=== PATIENT | male | born 1960 | race Caucasian/White ===

== ENCOUNTER → 2017-11-06 | Outpatient (CLI) | payer OTHER, MEDICARE ==
[2017-08-28 14:10] VITALS: BMI 30.3
[~2017-11-06] MED LIST: ACET-1748 PO; ALBU8.5H12 IH; ALE10 PO; ASPI-715 PO; ASPI-816 PO; ASPI81TA94 PO; AZIT-17 PO; BLOO1STR16 MC; BLOO1STR38 MC; BUM2 PO; BUME2TAB PO; CALC-845; CELE-1 PO; CELE100C79 PO; CELEBREX; CEP500 PO; CIPDEXPT RIGHT EAR; CITA-137 PO; CITA-139 PO; CLIN300C99 PO; CLON-303 PO; COUMADIN; DEXT-116 PO; DIURETIC; DULO30CA35 PO; DULO60CA56 PO; ENOX40DI9 SQ; ESC10 PO; ESCI20TA38 PO; FLU IM; FLU45SYR17 IM; FLU60SYR30 IM ONLY; GABA-503 PO; GABA-549 PO; HUMALOG SC; HYDR-4308 PO; HYDR-4309 PO; HYDR10 PO; INSU100C12 SQ; INSU100V24 SQ; INSU100V28 SQ; LANI SUBQ; LATA2.5D5 OP; LEVO750T44 PO; LEVO75TA68 PO; LEVO75TA73 PO; LEXAPRO; LOR5/325 PO; METF-410 PO; METO-231 PO; METO100T20 PO; METO2.5T15 PO; METOPROLOL; METXL50 PO; METXR500 PO; NARCO; OSC600 PO; OXYC-375 PO; OXYC-823 PO; OXYC10TA67 PO; OXYC5TAB38 PO; PER PO; PERCOSET; POTA25TA28 PO; POTASSIUM; PRA0.25 PO; PRAM0.5T23 PO; PRED20TA6 PO; PREG100C44 PO; PREG150C33 PO; PREG75CA60 PO; SPI25 PO; SPIR25TA78 PO; SPIRONOLACTONE; TRA50 PO; VITAMINS; WAR5 PO; WAR75 PO; WARF-1 PO; WARF-18 PO; WARF7.5T32 PO; [UNRECOGNIZED DRUG - CODE] PO; insulin pump SQ
== END ==
LOC: LAB 13:07
PROVIDERS: ATTEND Pharmacist Pharmacotherapy
DX: D69.6 Thrombocytopenia, unspecified (principal); Z86.39 Personal history of other endocrine, nutritional and metabolic disease
CPT/HCPCS: 36415; 85018; 99195

== ENCOUNTER → 2018-01-20 | Outpatient (CLI) | payer OTHER, MEDICARE ==
[2017-08-28 14:10] VITALS: BMI 30.3
[~2018-01-20] MED LIST changes: -ASPI-816 PO; +ASPI-870 PO; -WARF-18 PO; +WARF5TAB23 PO; +WARF7.5T13 PO; -WARF7.5T32 PO
== END ==
LOC: LAB 09:29
PROVIDERS: ATTEND Internal Medicine Nephrology
DX: E83.110 Hereditary hemochromatosis (principal); N18.3 Chronic kidney disease, stage 3 (moderate); E08.22 Diabetes mellitus due to underlying condition with diabetic chronic kidney disease; Z79.4 Long term (current) use of insulin
CPT/HCPCS: 36415; 82040; 82310; 82374; 82435; 82550; 82565; 82575; 82947; 83883; 83970; 84100; 84132; 84156; 84165; 84295; 84520; 86335

== ENCOUNTER → 2018-01-21 | Outpatient (CLI) | payer OTHER, MEDICARE ==
[2017-08-28 14:10] VITALS: BMI 30.3
--- NOTE | 2018-01-21 09:05 | RADIOLOGY IMAGING REPORT ---
FACILITY: [facility] [place] PATIENT NAME: Mata Beard : 1960 MR: [id number] V: [id number] EXAM DATE: ORDERING PHYSICIAN: FRANCIS ALSTON TECHNOLOGIST: Location: [facility] [place] Patient: Mata Beard : 1960 Visit/Account:[id number] Date of Sevice: 01/21/2018 KIDNEYS HISTORY: Stage III kidney disease. COMPARISON: None. FINDINGS: Right kidney- 9.6 x 4.8 x 5.6 cm, diffuse increased renal parenchymal echogenicity with normal thickn ess.. No concerning masses. No calculi. No hydronephrosis. Normal vascularity. Left kidney- 12.0 x 4.7 x 4.5 cm, diffuse increased renal parenchymal echogenicity but normal thickne ss.. No concerning masses. No calculi. No hydronephrosis. Normal vascularity. Bladder: Unremarkable. Bilateral ureteral jets visualized. Prevoid volume 926 mL. Postvoid volume 10 mL. Abdominal aorta and IVC: Patent by Doppler ultrasound. Other findings: None significant IMPRESSION: 1. Both kidneys are normal size with diffuse increased parenchymal echogenicity which can be seen wi th chronic medical renal disease. No hydronephrosis. 2. Normal urinary bladder. Report Dictated By: Raghu Adams MD at 01/21/2018 8:58 AM Report E-Signed By: Raghu Adams MD at 01/21/2018 9:00 AM WSN:[id number]
== END ==
LOC: US 01:11
PROVIDERS: ATTEND Internal Medicine Nephrology
DX: N18.3 Chronic kidney disease, stage 3 (moderate) (principal); E83.119 Hemochromatosis, unspecified; I43 Cardiomyopathy in diseases classified elsewhere; E83.110 Hereditary hemochromatosis
CPT/HCPCS: 76705

== ENCOUNTER → 2018-02-27 | Outpatient (CLI) | payer OTHER, MEDICARE ==
[2017-08-28 14:10] VITALS: BMI 30.3
[~2018-02-27] MED LIST changes: -CITA-139 PO; +CITA-145 PO; +ERGO500037 PO; +LISI-362 PO; -METF-410 PO; +METF-411 PO; -OXYC-375 PO; +OXYC1TAB78 PO
[2018-02-27 09:27] LABS: PLATELET COUNT, AUTOMATED 142 K/uL (150-450)
== END ==
LOC: LAB 09:07
PROVIDERS: ATTEND Internal Medicine
DX: I48.91 Unspecified atrial fibrillation (principal); N18.9 Chronic kidney disease, unspecified; E11.9 Type 2 diabetes mellitus without complications; Z86.79 Personal history of other diseases of the circulatory system; E78.00 Pure hypercholesterolemia, unspecified; E83.119 Hemochromatosis, unspecified
CPT/HCPCS: 36415; 82040; 82247; 82310; 82374; 82435; 82565; 82728; 82947; 83036; 83540; 83550; 84075; 84132; 84155; 84295; 84450; 84460; 84520; 85025

== ENCOUNTER 2018-03-24 17:24 | Emergency (ER) | payer OTHER, MEDICARE ==
[2017-08-28 14:10] VITALS: Wt 94.3 kg
[~2018-03-24 17:24] MED LIST changes: +LISI5TAB25 PO
[2018-03-24] MEDS ORDERED: ASPIRIN 325 MG TAB PO STA (17:34)
--- NOTE | 2018-03-24 17:41 | ER Report ---
History and Physical Time Seen By MD: 17:40 Hx. of Stated Complaint: Right-sided weakness since Saturday HPI/ROS 57-year-old male sent here from Agata Bello's office patient has a history of sudden onset right-sided weakness since Saturday has a history of previous TIA aND HEMOCHROMATOSIS Allergies: Coded Allergies: adhesive (Verified Allergy, Mild, 07/03/16) Home Meds Active Scripts Pramipexole Di-Hcl (PRAMIPEXOLE DIHYDROCHLORIDE) 0.5 Mg Tablet, 1 TAB PO TID, # 180 TAB 1 Refill Prov:GREER CROWLEY MD 03/24/18 Levothyroxine Sodium (LEVOTHYROXINE SODIUM) 75 Mcg Tablet, 1 TAB PO QAM, #30 TAB Prov:GREER CROWLEY MD 03/18/18 Duloxetine Hcl (CYMBALTA) 60 Mg Capsule.dr, 60 MG PO QDAY, #90 CAP 1 Refill Prov:GREER CROWLEY MD 03/10/18 Gabapentin (GABAPENTIN) 600 Mg Tablet, 600 MG PO BID Y for pain, #60 TAB 6 Refills Prov:GREER CROWLEY MD 02/27/18 Oxycodone Hcl 10 Mg Tab (OXYCODONE HCL 10 MG TAB) 10 Mg Tablet, 10 MG PO QID Y for pain, #120 TAB refill on or after 04/29/2018 Prov:GREER CROWLEY MD 02/27/18 Metoprolol Succinate (METOPROLOL SUCCINATE) 100 Mg Tab.er.24h, 1 TAB PO QDAY, # 90 TAB 4 Refills Prov:GREER CROWLEY MD 01/16/18 Clonazepam (CLONAZEPAM) 1 Mg Tablet, 1 TAB PO HS Y for restless leg, #30 TAB 5 Refills Prov:GREER CROWLEY MD 12/30/17 Insulin Lispro 100 Un/Ml Vial (HUMALOG 100 U/ML VIAL) 100 Unit/1 Ml Vial, 100 UNIT SQ DIRECTED, #10 VIAL 6 Refills Use up to 100 units/day with pump Prov:GREER CROWLEY MD 12/30/17 Pregabalin (LYRICA) 150 Mg Capsule, 150 MG PO BID, #60 CAPSULE 5 Refills Prov:GREER CROWLEY MD 11/13/17 Dextrose (GLUCOSE) 4 Gm Tab.chew, 8 GM PO QID, #4 TAB.CHEW 11 Refills Prov:KARIE CAROLINA PHARMAdryan 08/23/17 Bumetanide (BUMETANIDE) 2 Mg Tab, 1 TAB PO QDAY, #90 TAB 4 Refills Prov:GREER CROWLEY MD 07/29/17 Warfarin Sodium (COUMADIN) 5 Mg Tablet, 5 MG PO QDAY, #93 TAB 5 Refills Prov:KARIE CAROLINA PHARMD 12/10/16 Reported Medications Lisinopril (LISINOPRIL) 5 Mg Tablet, 5 MG PO QDAY, TAB 03/21/18 Ergocalciferol (Vitamin D2) (VITAMIN D2) 50,000 Unit Capsule, 50783 UNIT PO Q30D , CAPSULE 02/27/18 [insulin pump] No Conflict Check, SQ 07/07/16 Blood Sugar Diagnostic (CONTOUR NEXT) 1 Each Strip, 1 EACH MC QID for 30 Days, STRIP 02/22/16 Calcium Carbonate/Vitamin D3 (Oscal-D) 1 Ea Tab, 1 EA PO QDAY 06/06/12 Discontinued Reported Medications Lisinopril (LISINOPRIL) 10 Mg Tablet, 10 MG PO QDAY, TAB 02/27/18 Past Medical/Surgical History HTN, TIA, HEMACHROMATOSIS Reviewed Nurses Notes: Yes Old Medical Records Reviewed: Yes Hx Smoking: No Smoking Status: Never Smoker Exposure to Second Hand Smoke?: No Hx Substance Use Disorder: No Hx Alcohol Use: No Constitutional Vital Sign - Last 24 Hours 03/24/18 03/24/18 03/24/18 03/24/18 17:34 17:37 17:39 17:45 Temp 98.3 Pulse 67 68 Resp 17 B/P (MAP) 135/82 (99) 135/82 Pulse Ox 85 94 O2 Delivery Room Air O2 Flow Rate 3.0 03/24/18 03/24/18 03/24/18 03/24/18 17:54 18:00 18:09 18:14 Pulse 67 62 ??? B/P (MAP) 117/83 (94) Pulse Ox 94 94 03/24/18 03/24/18 03/24/18 03/24/18 18:29 18:30 18:44 18:59 Pulse ??? 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 HEENT has normocephalic/atraumatic tympanic membranes are non-reddened throat is non- reddened neck is supple no JVD heart rate is regular no murmurs rubs and gallops lungs clear to auscultation abdomen is soft bowel sounds 4 quadrants moves all extremities no focal neurologic deficit cranial nerves and grossly intact 2-12 Medical Decision Making Data Points Result Diagram: 03/24/18 1745 03/24/18 1745 Laboratory Hematology Test 03/24/18 17:45 Red Blood Count 5.70 M/uL (4.00-5.60) Mean Corpuscular Volume 95.9 fL (80.0-96.0) Mean Corpuscular Hemoglobin 32.6 pg (26.0-33.0) Mean Corpuscular Hemoglobin Concent 34.0 g/dL (32.0-36.0) Red Cell Distribution Width 18.1 % (11.5-14.5) Mean Platelet Volume 10.0 fL (7.2-11.1) Neutrophils (%) (Auto) 71.6 % (39.4-72.5) Lymphocytes (%) (Auto) 15.5 % (17.6-49.6) Monocytes (%) (Auto) 6.7 % (4.1-12.4) Eosinophils (%) (Auto) 4.9 % (0.4-6.7) Basophils (%) (Auto) 1.3 % (0.3-1.4) Nucleated RBC Relative Count (auto) 0.2 /100WBC Neutrophils # (Auto) 5.2 K/uL (2.0-7.4) Lymphocytes # (Auto) 1.1 K/uL (1.3-3.6) Monocytes # (Auto) 0.5 K/uL (0.3-1.0) Eosinophils # (Auto) 0.4 K/uL (0.0-0.5) Basophils # (Auto) 0.1 K/uL (0.0-0.1) Nucleated RBC Absolute Count (auto) 0.02 K/uL Peripheral Blood Smear Y/N Prothrombin Time 25.8 seconds (12.0-14.4) Prothromb Time International Ratio 2.28 Activated Partial Thromboplast Time 38 seconds (23-35) Sodium Level 142 mmol/L (137-145) Potassium Level 4.2 mmol/L (3.5-5.0) Chloride Level 102 mmol/L (98-107) Carbon Dioxide Level 30 mmol/L (22-30) Blood Urea Nitrogen 38 mg/dl (9-21) Creatinine 2.00 mg/dl (0.66-1.25) Glomerular Filtration Rate Calc 34.5 Random Glucose 89 mg/dl (75-110) Calcium Level 9.0 mg/dl (8.4-10.2) Total Bilirubin 1.7 mg/dl (0.2-1.3) Aspartate Amino Transf (AST/SGOT) 52 U/L (0-35) Alanine Aminotransferase (ALT/SGPT) 59 U/L (0-56) Alkaline Phosphatase 218 U/L (0-126) Troponin I < 0.012 ng/ml Total Protein 7.7 g/dl (6.3-8.2) Albumin 3.9 g/dl (3.5-5.0) Chemistry Test 03/24/18 17:45 White Blood Count 7.3 k/uL (4.5-11.0) Red Blood Count 5.70 M/uL (4.00-5.60) Hemoglobin 18.6 g/dL (14.0-18.0) Hematocrit 54.6 % (42.0-52.0) Mean Corpuscular Volume 95.9 fL (80.0-96.0) Mean Corpuscular Hemoglobin 32.6 pg (26.0-33.0) Mean Corpuscular Hemoglobin Concent 34.0 g/dL (32.0-36.0) Red Cell Distribution Width 18.1 % (11.5-14.5) Platelet Count 146 K/uL (150-450) Mean Platelet Volume 10.0 fL (7.2-11.1) Neutrophils (%) (Auto) 71.6 % (39.4-72.5) Lymphocytes (%) (Auto) 15.5 % (17.6-49.6) Monocytes (%) (Auto) 6.7 % (4.1-12.4) Eosinophils (%) (Auto) 4.9 % (0.4-6.7) Basophils (%) (Auto) 1.3 % (0.3-1.4) Nucleated RBC Relative Count (auto) 0.2 /100WBC Neutrophils # (Auto) 5.2 K/uL (2.0-7.4) Lymphocytes # (Auto) 1.1 K/uL (1.3-3.6) Monocytes # (Auto) 0.5 K/uL (0.3-1.0) Eosinophils # (Auto) 0.4 K/uL (0.0-0.5) Basophils # (Auto) 0.1 K/uL (0.0-0.1) Nucleated RBC Absolute Count (auto) 0.02 K/uL Peripheral Blood Smear Y/N Prothrombin Time 25.8 seconds (12.0-14.4) Prothromb Time International Ratio 2.28 Activated Partial Thromboplast Time 38 seconds (23-35) Glomerular Filtration Rate Calc 34.5 Calcium Level 9.0 mg/dl (8.4-10.2) Total Bilirubin 1.7 mg/dl (0.2-1.3) Aspartate Amino Transf (AST/SGOT) 52 U/L (0-35) Alanine Aminotransferase (ALT/SGPT) 59 U/L (0-56) Alkaline Phosphatase 218 U/L (0-126) Troponin I < 0.012 ng/ml Total Protein 7.7 g/dl (6.3-8.2) Albumin 3.9 g/dl (3.5-5.0) Coagulation Test 03/24/18 17:45 Prothrombin Time 25.8 seconds Prothromb Time International Ratio 2.28 Activated Partial Thromboplast Time 38 seconds ED Course/Re-evaluation ED Course CAT scan was read as negative we'll send him back to his primary care provider for additional imaging as needed Re-evaluation UNCHANGED DURING ER STAY NO NEW LAB OR CT HEAD FINDINGS HOME W Decision to Disposition Date: Mar 24, 2018 Decision to Disposition Time: 19:40 Depart Departure Latest Vital Signs Vital Signs Date Time Temp Pulse Resp B/P (MAP) Pulse Ox O2 Delivery O2 Flow Rate FiO2 6/18/18 19:14 60 97 03/24/18 19:00 129/84 (99) 03/24/18 17:45 3.0 03/24/18 17:37 98.3 17 Room Air Impression: Primary Impression: Weakness of right hand Condition: Improved Disposition: HOME OR SELF-CARE Referrals: GREER CROWLEY MD (PCP) 1 Day Patient Instructions: Weakness (ED) Additional Instructions: Follow-up with your primary care physician next available appointment you may need additional imaging will at your primary care physician organize this, please return to the emergency room for any worsening of symptoms RC VÁZQUEZ Mar 24, 2018 17:41
[2018-03-24 17:52] LABS: PLATELET COUNT, AUTOMATED 146 K/uL (150-450)
--- NOTE | 2018-03-24 17:53 | EKG ---
FACILITY: [facility] PATIENT NAME: Mata CHANEY : [id number] MR: [id number] V: [id number] EXAM DATE: ORDERING PHYSICIAN: RC VÁZQUEZ TECHNOLOGIST: RIGO Villatoro Reason : NEURO Blood Pressure : / mmHG Vent. Rate : 065 BPM Atrial Rate : 065 BPM P-R Int : 158 ms QRS Dur : 094 ms QT Int : 434 ms P-R-T Axes : 036 -01 025 degrees QTc Int : 451 ms Normal sinus rhythm Normal ECG When compared with ECG of 22-JUL-2017 08:18, Sinus rhythm has replaced Electronic atrial pacemaker Confirmed by BEAU HALL ([id number]) on 03/24/2018 8:36:42 PM Referred By: SHERITA Confirmed By:BEAU HALL
[2018-03-24 18:01] LABS: INR 2.28
[2018-03-24 19:00] VITALS: BP 129/84
--- NOTE | 2018-03-24 19:05 | RADIOLOGY IMAGING REPORT ---
FACILITY: [facility] PATIENT NAME: Mata Beard : 1960 MR: [id number] V: [id number] EXAM DATE: ORDERING PHYSICIAN: RC VÁZQUEZ TECHNOLOGIST: Location: [facility] Patient: Mata Beard : 1960 Visit/Account:[id number] Date of Sevice: 03/24/2018 EXAMINATION: CT HEAD WITHOUT CONTRAST COMPARISON: None available HISTORY: Right-sided weakness. PROCEDURE: Noncontrast CT from the vertex through the skull base. One of the following dose optimizat ion techniques was utilized in the performance of this exam: Automated exposure control; adjustment o f the mA and/or kV according to the patient's size; or use of an iterative reconstruction technique. Specific details can be referenced in the facility's radiology CT exam operational policy. FINDINGS: Brain volume: Age-appropriate. Hemorrhage/extra-axial fluid: None. Mass effect/midline shift/edema: None. Ischemia: Mathew-white differentiation is preserved. Ventricles and basal cisterns: Within normal limits. Posterior fossa: Negative. Vessels: Negative. Calvarium, skull base, and scalp: Negative. Visualized sinuses and orbits: Within normal limits. IMPRESSION: Negative age-appropriate noncontrast head CT. Report Dictated By: Wilson Marquez MD at 03/24/2018 6:56 PM Report E-Signed By: Wilson Marquez MD at 03/24/2018 7:02 PM [id number]
== END 2018-03-24 19:33 | disposition home or self-care (01) ==
LOC: ER 17:55
DX: R53.1 Weakness (principal); Z86.73 Personal history of transient ischemic attack (TIA), and cerebral infarction without residual deficits; I10 Essential (primary) hypertension
CPT/HCPCS: 70450; 82040; 82247; 82310; 82374; 82435; 82565; 82947; 84075; 84132; 84155; 84295; 84450; 84460; 84484; 84520; 85025; 85610; 85730; 93005; 99284

== ENCOUNTER → 2018-03-31 | Outpatient (CLI) | payer OTHER, MEDICARE ==
[2017-08-28 14:10] VITALS: BMI 30.3
== END ==
LOC: SPU 07:41
PROVIDERS: ATTEND Internal Medicine
DX: E83.119 Hemochromatosis, unspecified (principal)
CPT/HCPCS: 85014; 99195

== ENCOUNTER → 2018-05-08 | Outpatient (CLI) | payer OTHER, MEDICARE ==
[2017-08-28 14:10] VITALS: BMI 30.3
[~2018-05-08] MED LIST changes: +CLON-304 PO; +SPIR25TA80 PO
[2018-05-08 09:36] LABS: PLATELET COUNT, AUTOMATED 123 K/uL (150-450)
--- NOTE | 2018-05-08 10:58 | RADIOLOGY IMAGING REPORT ---
FACILITY: [facility] PATIENT NAME: Mata Beard : 1960 MR: [id number] V: [id number] EXAM DATE: ORDERING PHYSICIAN: GREER CROWLEY TECHNOLOGIST: Location: [facility] Patient: Mata Beard : 1960 Visit/Account:[id number] Date of Sevice: 05/08/2018 EXAMINATION: Abdominal ultrasound complete HISTORY: Right upper quadrant pain, chronic kidney disease, diabetes type II COMPARISON: Abdomen ultrasound June 29, 2015 FINDINGS: Gallbladder: Gallbladder wall is mildly thickened at 4 mm. There is no demonstration of gallbladder stones or sludge. There is a negative Mills sign by technologist notation Liver: There is a slightly lobular contour to the enlarged liver measuring 18 cm in length. The live r echotexture appears heterogeneous although discrete mass is not demonstrated Common duct: Normal measuring six mm. Pancreas: Partially obscured by bowel gas although no focal masses demonstrated Spleen: Enlarged measuring 15.8 cm in length. Kidneys: Normal in size and echogenicity, the right measures 8.9 cm in length, and the left 10.6 cm. No hydronephrosis. Is a tiny cyst in the left kidney. Resistive indices in the kidneys measures 0 .77 on the right 0.76 on the left Upper abdominal aorta and IVC: Negative. Ascites: None. IMPRESSION: Liver is mildly enlarged with a lobular contour and heterogeneous echotexture consistent with the anand or history of cirrhosis Spinal megaly with the spleen measuring 15.8 cm in length Resistive indices in the kidneys mildly elevated at 0.77 on the right and 0.76 on the left Gallbladder wall is mildly thickened although no evidence of gallbladder stones sludge or positive Mu rphy sign Report Dictated By: Paola Persaud MD at 05/08/2018 10:33 AM Report E-Signed By: Paola Persaud MD at 05/08/2018 10:54 AM WSN:[id number]
== END ==
LOC: LAB 08:47
PROVIDERS: ATTEND Internal Medicine
DX: N18.9 Chronic kidney disease, unspecified (principal); E11.9 Type 2 diabetes mellitus without complications; Z86.79 Personal history of other diseases of the circulatory system; R10.11 Right upper quadrant pain; E83.119 Hemochromatosis, unspecified; K74.60 Unspecified cirrhosis of liver; R19.8 Other specified symptoms and signs involving the digestive system and abdomen
CPT/HCPCS: 36415; 76700; 81001; 82040; 82150; 82247; 82310; 82374; 82435; 82465; 82565; 82728; 82947; 83036; 83540; 83550; 83690; 83718; 84075; 84132; 84155; 84295; 84443; 84450; 84460; 84478; 84520; 85025

== ENCOUNTER 2018-06-09 10:26 | Emergency (ER) | payer OTHER, MEDICARE ==
[2017-08-28 14:10] VITALS: Wt 90.7 kg
--- NOTE | 2018-06-09 10:28 | ER Report ---
History and Physical Time Seen By MD: 10:28 HPI/ROS CHIEF COMPLAINT: Laceration to leg HISTORY OF PRESENT ILLNESS: Patient is a 57-year-old male who presents to the emergency department after striking his right anterior lovelace with a sledgehammer. This was an accidental injury but it did cause the skin split. He presents approximately 30 minutes after the initial injury. He is having continued bleeding from the site. Patient's last tetanus shot was 3 years ago. Patient is anticoagulated with Coumadin for prior stroke/TIA. Last Coumadin level was checked to weeks ago. Allergies: Coded Allergies: adhesive (Verified Allergy, Mild, 06/09/18) Home Meds Active Scripts Pregabalin (LYRICA) 150 Mg Capsule, 150 MG PO BID, #60 CAPSULE 5 Refills Prov:GREER CROWLEY MD 05/22/18 Levothyroxine Sodium (LEVOTHYROXINE SODIUM) 75 Mcg Tablet, 1 TAB PO QAM, #90 TAB Prov:GREER CROWLEY MD 05/05/18 Blood Sugar Diagnostic (CONTOUR NEXT) 1 Each Strip, 1 EACH MC QID for 30 Days, #150 STRIP 5 Refills patient to test blood glucose four times daily Prov:GREER CROWLEY MD 04/15/18 Pramipexole Di-Hcl (PRAMIPEXOLE DIHYDROCHLORIDE) 0.5 Mg Tablet, 1 TAB PO TID, #180 TAB 1 Refill Prov:GREER CROWLEY MD 03/24/18 Duloxetine Hcl (CYMBALTA) 60 Mg Capsule.dr, 60 MG PO QDAY, #90 CAP 1 Refill Prov:GREER CROWLEY MD 03/10/18 Gabapentin (GABAPENTIN) 600 Mg Tablet, 600 MG PO BID PRN for pain, #60 TAB 6 Refills Prov:GREER CROWLEY MD 02/27/18 Oxycodone Hcl 10 Mg Tab (OXYCODONE HCL 10 MG TAB) 10 Mg Tablet, 10 MG PO QID PRN for pain, #120 TAB refill on or after 04/29/2018 Prov:GREER CROWLEY MD 02/27/18 Metoprolol Succinate (METOPROLOL SUCCINATE) 100 Mg Tab.er.24h, 1 TAB PO QDAY, #90 TAB 4 Refills Prov:GREER CROWLEY MD 01/16/18 Clonazepam (CLONAZEPAM) 1 Mg Tablet, 1 TAB PO HS PRN for restless leg, #30 TAB 5 Refills Prov:GREER CROWLEY MD 12/30/17 Insulin Lispro 100 Un/Ml Vial (HUMALOG 100 U/ML VIAL) 100 Unit/1 Ml Vial, 100 UNIT SQ DIRECTED, #10 VIAL 6 Refills Use up to 100 units/day with pump Prov:GREER CROWLEY MD 12/30/17 Dextrose (GLUCOSE) 4 Gm Tab.chew, 8 GM PO QID, #4 TAB.CHEW 11 Refills Prov:KARIE CAROLINA PHARMD 08/23/17 Warfarin Sodium (COUMADIN) 5 Mg Tablet, 5 MG PO QDAY, #93 TAB 5 Refills Prov:KARIE CAROLINA PHARMD 12/10/16 Reported Medications Warfarin Sodium (WARFARIN SODIUM) 2.5 Mg Tablet, 2.5 MG PO 2XW 06/09/18 Bumetanide (BUMETANIDE) 2 Mg Tab, 2 MG PO BID, TAB 06/09/18 Lisinopril (LISINOPRIL) 5 Mg Tablet, 5 MG PO QDAY, TAB 03/21/18 Ergocalciferol (Vitamin D2) (VITAMIN D2) 50,000 Unit Capsule, 32207 UNIT PO Q30D, CAPSULE 02/27/18 [insulin pump] No Conflict Check, SQ 07/07/16 Discontinued Scripts Bumetanide (BUMETANIDE) 2 Mg Tab, 1 TAB PO QDAY, #90 TAB 4 Refills Prov:GREER CROWLEY MD 07/29/17 Past Medical/Surgical History Past medical history for hypertension, TIA, hemachromatosis, hypothyroidism, chronic pain, insulin requiring diabetes. Hx Smoking: No Smoking Status: Never Smoker Exposure to Second Hand Smoke?: No Hx Substance Use Disorder: No Hx Alcohol Use: No Constitutional Vital Sign - Last 24 Hours 06/09/18 06/09/18 06/09/18 06/09/18 10:36 10:36 10:56 11:00 Temp 97.8 Pulse 76 71 Resp 14 B/P (MAP) 101/70 101/70 (80) 79/57 (64) Pulse Ox 91 87 O2 Delivery Room Air Room Air 9/3/18 9/3/18 9/3/18 11:25 11:26 11:30 Pulse 66 B/P (MAP) 81/58 (66) 77/56 (63) Pulse Ox 88 O2 Delivery Room Air Physical Exam General appearance: Alert no distress. Skin: Patient has a 3 cm vertical oriented laceration to the middle 3rd of the right tibial area. There is active bleeding. No foreign body visualized. Medical Decision Making ED Course/Re-evaluation ED Course 06/09/2018 10:47:03 am patient with recent major laceration with active bleeding. Plan will be wound irrigation patient's tetanus status is up-to-date. We'll then perform primary closure to obtain hemostasis. 06/09/2018 11:27:08 am we will have physical therapy come to evaluate the patient for his lower extremity swelling. Procedure Procedure: Laceration repair. Verbal consent was obtained from the patient. The 3 cm laceration on the right anterior lovelace was anesthetized in the usual fashion. The wound was cleansed, draped and explored to its base with a gloved finger. [ ] There were no deep s tructures involved. No tendon injury was identified. The wound was repaired with 7 single interrupted 4-0 nylon sutures. The wound repair was simple. The procedure was performed by myself. Bacitracin dressing was applied postprocedure. Decision to Disposition Date: Jun 09, 2018 Decision to Disposition Time: 11:27 Depart Departure Latest Vital Signs Vital Signs Date Time Temp Pulse Resp B/P (MAP) Pulse Ox O2 Delivery O2 Flow Rate FiO2 06/09/18 11:30 77/56 (63) 06/09/18 11:26 66 88 Room Air 06/09/18 10:36 97.8 14 Impression: Primary Impression: Leg laceration Condition: Improved Disposition: HOME OR SELF-CARE Referrals: GREER CROWLEY MD (PCP) 2 Weeks for suture removal Patient Instructions: Acute Wound Care (DC), Laceration (ED) Additional Instructions: Follow-up with her primary care provider 14 days for suture removal. Return sooner if your symptoms or signs of infection as discussed which include but are not limited to fever, redness streaking from the wound, increasing pain at the wound site or pus from the wound. Problem Qualifiers Primary Impression: Leg laceration Encounter type: initial encounter Laterality: right Qualified Codes: S81.811A - Laceration without foreign body, right lower leg, initial encounter MAXIMILIANO EPSTEIN MD Jun 09, 2018 10:28
[2018-06-09] MEDS ORDERED: WARF2.5T11 PO (10:43)
[2018-06-09] MEDS ORDERED: BUM2 PO (10:43)
[2018-06-09 12:00] VITALS: BP 92/62
== END 2018-06-09 12:25 | disposition home or self-care (01) ==
LOC: ER 10:39
DX: S81.811A Laceration without foreign body, right lower leg, initial encounter (principal); W20.8XXA Other cause of strike by thrown, projected or falling object, initial encounter
CPT/HCPCS: 97161; 99284

== ENCOUNTER 2018-08-22 07:29 | Outpatient (RCR) | payer OTHER, MEDICARE ==
[2017-08-28 14:10] VITALS: BMI 30.3
[~2018-08-22 07:29] MED LIST changes: -CLON-304 PO; +CLON-333 PO; -DEXT-116 PO; +DEXT-60 PO; -HYDR-4308 PO; -HYDR-4309 PO; +HYDR-653 PO; +HYDR-654 PO; -METF-411 PO; +METF-450 PO; +MUPI15CR10 TP; +TRAZ50TA34 PO; +WARF2.5T11 PO
[2018-08-22 11:50] LABS: PLATELET COUNT, AUTOMATED 131 K/uL (150-450)
[2018-10-02] MEDS ORDERED: WARF-1 PO (12:42)
[2018-10-08] MEDS ORDERED: DULO30CA35 PO (15:04)
== END 2018-10-08 14:12 | disposition home or self-care (01) ==
LOC: SPU 07:29
PROVIDERS: ATTEND Internal Medicine
DX: E83.119 Hemochromatosis, unspecified (principal)
CPT/HCPCS: 85025; 99195

== ENCOUNTER 2018-08-24 07:25 | Emergency (ER) | payer OTHER, MEDICARE ==
[2017-08-28 14:10] VITALS: Wt 93.4 kg
[2018-08-24 08:00] VITALS: BP 107/60
--- NOTE | 2018-08-24 08:01 | ER Report ---
History and Physical Time Seen By MD: 07:45 Hx. of Stated Complaint: RIGHT HAND INJURY 2 DAYS AGO. HPI/ROS CHIEF COMPLAINT: r hand injury HISTORY OF PRESENT ILLNESS: Pt presents 18 hours after his right hand was pinned in a machine press; he states the press twisted and pinned his hand briefly. He noted swelling but was not initially concerned about this. However, he had persistent tingling of middle finger and is now concerned about fracture and resulting 'gangrene' that he is worried would result. Pain is mild. Swelling is persistent, does not radiate from middle finger. He is right hand dominant. Of note, his initial pulse ox upon presentation is 75%. Pt denies sob, chest pain, dyspnea on exertion. He states that when he checks 02 at home it is typically in 70-80's. He is supposed to be on cpap at night but frequently does not use this. He is not on home 02. He notes history of pleurodesis 3 yrs ago but no subsequent lung issues. REVIEW OF SYSTEMS: Respiratory: No cough, no dyspnea. Cardiovascular: No chest pain, no palpitations. Gastrointestinal: No vomiting, no abdominal pain. Musculoskeletal: No back pain. Allergies: Coded Allergies: adhesive (Verified Allergy, Mild, 08/24/18) Home Meds Active Scripts Bumetanide (BUMETANIDE) 2 Mg Tab, 1 TAB PO BID, #90 TAB 4 Refills Prov:GREER CROWLEY MD 08/13/18 Oxycodone Hcl 10 Mg Tab (OXYCODONE HCL 10 MG TAB) 10 Mg Tablet, 1 TAB PO QID PRN for pain, #120 TAB refill on or after 10/05/2018 Prov:GREER CROWLEY MD 08/05/18 Trazodone Hcl (TRAZODONE HCL) 50 Mg Tablet, 0.5-1 TAB PO QHS PRN for sleep, #30 TAB 3 Refills Prov:GREER CROWLEY MD 08/05/18 Levothyroxine Sodium (LEVOTHYROXINE SODIUM) 75 Mcg Tablet, 1 TAB PO QAM, #90 TAB Prov:GREER CROWLEY MD 08/04/18 Pramipexole Di-Hcl (PRAMIPEXOLE DIHYDROCHLORIDE) 0.5 Mg Tablet, 1 TAB PO TID, #270 TAB 1 Refill Prov:GREER CROWLEY MD 08/04/18 Pregabalin (LYRICA) 150 Mg Capsule, 150 MG PO BID, #60 CAPSULE 5 Refills Prov:GREER CROWLEY MD 05/22/18 Blood Sugar Diagnostic (CONTOUR NEXT) 1 Each Strip, 1 EACH MC QID for 30 Days, #150 STRIP 5 Refills patient to test blood glucose four times daily Prov:GREER CROWLEY MD 04/15/18 Gabapentin (GABAPENTIN) 600 Mg Tablet, 600 MG PO BID PRN for pain, #60 TAB 6 Refills Prov:GREER CROWLEY MD 02/27/18 Metoprolol Succinate (METOPROLOL SUCCINATE) 100 Mg Tab.er.24h, 1 TAB PO QDAY, #90 TAB 4 Refills Prov:GREER CROWLEY MD 01/16/18 Insulin Lispro 100 Un/Ml Vial (HUMALOG 100 U/ML VIAL) 100 Unit/1 Ml Vial, 100 UNIT SQ DIRECTED, #10 VIAL 6 Refills Use up to 100 units/day with pump Prov:GREER CROWLEY MD 12/30/17 Dextrose (GLUCOSE) 4 Gm Tab.chew, 8 GM PO QID, #4 TAB.CHEW 11 Refills Prov:KARIE CAROLINA PHARMD 08/23/17 Warfarin Sodium (COUMADIN) 5 Mg Tablet, 5 MG PO QDAY, #93 TAB 5 Refills Prov:KARIE CAROLINA PHARMD 12/10/16 Reported Medications Warfarin Sodium (WARFARIN SODIUM) 2.5 Mg Tablet, 2.5 MG PO 3XW -W-06/09/18 Lisinopril (LISINOPRIL) 5 Mg Tablet, 5 MG PO QDAY, TAB 03/21/18 Ergocalciferol (Vitamin D2) (VITAMIN D2) 50,000 Unit Capsule, 73096 UNIT PO Q30D, CAPSULE 02/27/18 Discontinued Reported Medications [insulin pump] No Conflict Check, SQ 07/07/16 Discontinued Scripts Mupirocin Calcium (BACTROBAN) 15 Gm Cream..g., 0 TP BID, #15 GM 2 Refills Prov:GREER CROWLEY MD 08/05/18 Duloxetine Hcl (CYMBALTA) 60 Mg Capsule.dr, 60 MG PO QDAY, #90 CAP 1 Refill Prov:GREER CROWLEY MD 03/10/18 Reviewed Nurses Notes: Yes Old Medical Records Reviewed: Yes Hx Smoking: No Smoking Status: Never Smoker Exposure to Second Hand Smoke?: No Hx Substance Use Disorder: No Hx Alcohol Use: No Constitutional Vital Sign - Last 24 Hours 08/24/18 08/24/18 07:29 07:45 Temp 98.8 Pulse 88 Resp 20 B/P (MAP) 143/76 Pulse Ox 75 O2 Delivery Room Air O2 Flow Rate 2.0 Physical Exam General Appearance: [The patient is alert, has no immediate need for airway protection and no signs of toxicity.] [ ] Pupils equal and round no pallor or injection. ENT, Mouth: Mucous membranes are moist. Respiratory: There are no retractions, lungs are clear to auscultation. Cardiovascular: Regular rate and rhythm. Neurological: alert, oriented, nad Skin: Warm and dry, no rashes. Musculoskeletal: Extremities are nontender, nonswollen and have full range of motion. with excpetion of r middle finger. Pt has mild ttp along R third MC, no ttp at mcp or pip; ttp prox phalanx without deformity. Pt is unable to fully extend middle finger and has diminished but present flexion. Nl lt touch sensation. CR nl DIFFERENTIAL DIAGNOSIS: After history and physical exam differential diagnosis was considered for fracture, dislocation, tendon injury; PE, pneumonia, acs, ch f, pneumothorax, or other etiology of hypoxia Medical Decision Making ED Course/Re-evaluation ED Course Patient presents with chief complaint of right middle finger injury. X-ray ordered to rule out fracture/dislocation. He has some flexion but inability to fully extend. This may be due to the swelling versus extensor tendon injury. Will splint for follow-up. Tetanus is up-to-date. We will clean small abrasion. Patient also presents with hypoxia of 75% on room air. On 2 L nasal cannula he is at 97%. He is not in respiratory distress throughout his evaluation and denies dyspnea upon arrival. I discussed the implications of continued low O2 sats saturation, however patient refuses further evaluation of his saturation at this time. He states that this is similar to his baseline saturation at home. I discussed all this is a stressor for heart, brain, other organs. Patient understands but at this time refuses evaluation as he is completely symptomatically. I instructed him to follow up with primary doctor for further evaluation of this. Xray without e/o displaced fx. Will splint in psn of function. D/c for re- evaluation by pcm; if function does not resolve as swelling improves, recommend orthopedic eval. Pt does state that due to his hemachrosis he has been unable to fully extend fingers for a while; so function today is likely c/w his presenatio n. Pt is 89% on room air prior to d/c. Decision to Disposition Date: Aug 24, 2018 Decision to Disposition Time: 08:18 Depart Departure Latest Vital Signs Vital Signs Date Time Temp Pulse Resp B/P (MAP) Pulse Ox O2 Delivery O2 Flow Rate FiO2 08/24/18 07:45 2.0 08/24/18 07:29 98.8 88 20 143/76 75 Room Air Impression: Primary Impression: Finger injury Additional Impression: Hypoxia Condition: Improved Disposition: HOME OR SELF-CARE Referrals: GREER CROWLEY MD (PCP) Patient Instructions: Finger Sprain (ED), Hypoxia (ED) Additional Instructions: As we discussed; 1) Follow up with primary doctor in 1 week for re-evaluation of finger injury 2) Follow up for pulmonary evaluation to determine if you need to be on oxygen or have further lung testing given your low oxygen level. Please return immediately if you have any shortness of breath, chest pain, or any concerns. Problem Qualifiers Primary Impression: Finger injury Encounter type: initial encounter Laterality: right Qualified Codes: S69.91XA - Unspecified injury of right wrist, hand and finger(s), initial encounter MAXIMILIANO MANCIA MD Aug 24, 2018 08:01
--- NOTE | 2018-08-24 08:41 | RADIOLOGY IMAGING REPORT ---
FACILITY: [facility] PATIENT NAME: Mata Beard : 1960 MR: [id number] V: [id number] EXAM DATE: ORDERING PHYSICIAN: MAXIMILIANO MANCIA TECHNOLOGIST: Location: [facility] Patient: Mata Beard : 1960 Visit/Account:[id number] Date of Sevice: 08/24/2018 3 views right hand Indication: Blunt trauma, middle finger pain Comparison: None Available. Findings: Bones are osteopenic. Distal radius and ulna appear intact. Radiocarpal articulation is within normal limits. Degenerative changes seen at the articulation the capitate with the proximal carpal row. Moderate degenerative changes are seen at the MCP joints. The obliquely oriented change suggests a mildly impacted fracture involving the head/neck third metac arpal bone Impression: 1. Osteopenia. Mildly impacted fracture head of third metacarpal bone Report Dictated By: Manjeet Leon MD at 08/24/2018 8:18 AM Report E-Signed By: Manjeet Leon MD at 08/24/2018 8:37 AM WSN:[id number]
== END 2018-08-24 08:30 | disposition home or self-care (01) ==
LOC: ER 07:52
DX: S69.91XA Unspecified injury of right wrist, hand and finger(s), initial encounter (principal); R09.02 Hypoxemia
CPT/HCPCS: 99283

== ENCOUNTER 2018-09-03 10:45 | Outpatient (RCR) | payer OTHER, MEDICARE ==
[2017-08-28 14:10] VITALS: BMI 30.3
--- NOTE | 2018-06-13 15:59 | PT INITIAL EVALUATION ---
MEDICAL DIAGNOSIS: Bilateral LE ulcers TREATMENT DIAGNOSIS: Bilateral LE venous insufficiency ulcers DATE OF ONSET: 05/23/18 SUBJECTIVE: Patient previously seen in ER on 06/09/18 for R) LE laceration after accidentally hitting himself in the R) lovelace with a sledge hammer. PT was consulted to evaluate bilateral LE ulcers while in ED. Pt referred to outpatient PT wound care for evaluation and treatment of bilateral, chronic venous insufficiency ulcers. The patient reports that he regularly experiences blisters on bilateral LEs, leading to ulcerations which he manages independently at home. He reports ulcer on L) lateral LE has been present for the past 2-3 weeks. Pt is managing suture site on R) LE and will f/u with PCP for suture removal as directed by ED. REHAB PROBLEM LIST: Chronic wounds PREVIOUS MEDICAL HISTORY: Hemochromatosis, diabetes, please see EMR regarding complex medical history OBJECTIVE: Sensation: Impaired d/t peripheral neuropathy Special Tests: ABIs R) LE: 1.68 L) LE: 1.86 Other Objective Findings: Wound Measurements: R) medial ankle: 3.6 cm L x 1.6 cm W x0.2 cm D L) proximal, lateral lovelace: 0.9 cm L x 0.9 cm W x0.2 cm D L) distal, lateral lovelace: 1.9 cm L x 2.9 cm W x 0.2 cm D Circumferential Measurements: R) LE ankle: 26 cm mid-calf: 37 cm L) LE ankle: 23 cm mid-calf: 34.5 cm ASSESSMENT: PT wound eval complete. R) LE demonstrates moderate edema from recent injury with sledgehammer. No obvious signs of underlying hematoma at this time. Suture site on R) anterior lovelace is well approximated with surrounding partial thickness wound. Pt is managing this with daily dressing changes and application of bacitracin ointment. Wound was covered with a bordered gauze dressing. Wound present on the R) medial ankle, demonstrates good granulation tissue in wound base, with mild slough at wound edges. PT completed conservative, selective debridement of non-viable tissue and slough with tweezers to the depth of the subcutaneous tissue. Wound base treated with collagen with silver and covered with a 4x4 silicone bordered dressing for absorption. Wound on L) lateral, proximal lovelace with good granulation tissue present. PT completed conservative, selective debridement of non-viable tissue and slough with tweezers to the depth of the subcutaneous tissue. Wound base treated with collagen with silver and covered with a silicone bordered dressing. Chronic wound present on the lateral side of the distal L) LE. Moderate slough present across wound base. PT completed conservative, selective debridement of non-viable tissue and slough with tweezers to the depth of the subcutaneous tissue. Wound cleansed with sterile saline and gauze and then treated with collagen and silver followed by a silicone bordered gauze dressing. ABIs measured bilaterally, R) LE = 1.68, L) LE = 1.86, both indicating possible calcification of arteries. PT recommended that pt obtain knee high stockings with subtherapeutic compression from OTC source to assist with LE edema. Pt agreeable. The patient will benefit from skilled PT wound care to include conservative, sharps debridement as well as advanced wound care product selection and application to facilitate wound healing. Pt will benefit from further pt education in order to prevent recurrence of chronic wounds. Short Term Goals 1: Pt to maintain clean, dry and intact dressings between wound care visits. 2: Pt to obtain proper compression garments as indicated by PEGGY readings and PT recommendations 3: Wounds to demonstrate 100% granulation tissue with no s/s of infection 4: Wounds to gradually epithelialize from the edges inward and demonstrate 100% closures 5: Pt to receive education regarding management of LE edema and prevent further wounds. Patient's Goals Wound healing PLAN: Patient to be seen for skilled PT wound care to include conservative, selective sharps debridement as well as advanced wound care product selection and application 1x/Week for up to 90 days. Thank you for this referral. If you have any questions, comments, or concerns about this report or plan, please contact me at . Sherley Griffin, PT, DPT MTDD
== END 2018-09-11 ==
LOC: PT 10:45
PROVIDERS: ATTEND Internal Medicine
DX: L97.301 Non-pressure chronic ulcer of unspecified ankle limited to breakdown of skin (principal); L97.821 Non-pressure chronic ulcer of other part of left lower leg limited to breakdown of skin; E83.119 Hemochromatosis, unspecified; E11.42 Type 2 diabetes mellitus with diabetic polyneuropathy; I87.2 Venous insufficiency (chronic) (peripheral)
CPT/HCPCS: 97161

== ENCOUNTER 2018-09-12 10:30 | Outpatient (RCR) | payer OTHER, MEDICARE ==
[2017-08-28 14:10] VITALS: BMI 30.3
--- NOTE | 2018-09-12 14:19 | PT PLAN OF CARE ---
Physician: Dr. Menon Patient is being seen: Smitha Beard Therapist: Leia Dominique, PT, MPT, OMS Medical Diagnosis: Bilateral LE ulcers Treatment Diagnosis: Bilateral LE venous insufficiency ulcers; dehisced laceration R) anterior lovelace; skin abrasions from trauma at L) anterior lovelace Date of Onset: 05/23/18 Date of Re-Evaluation: 09/12/18 Date patient was last seen: 09/12/18 Number of treatments: 12 Number of cancellations/No shows: 0 PREVIOUS MEDICAL HISTORY: Hemochromatosis, diabetes, please see EMR regarding complex medical history Sensation: Impaired d/t peripheral neuropathy Special Tests: ABIs R) LE: 1.68 L) LE: 1.86 Other Objective Findings: Circumferential Measurements: R) LE ankle: 26 cm mid-calf: 37 cm L) LE ankle: 23 cm mid-calf: 34.5 cm ABIs measured bilaterally, R) LE = 1.68, L) LE = 1.86, both indicating possible calcification of arteries. PT recommended that pt obtain knee high stockings with subtherapeutic compression from OTC source to assist with LE edema. Pt wears these regularly. INTERVENTIONS: Skilled PT wound care to include conservative, selective sharps debridement as well as advanced wound care product selection and application 1x/Week for up to 90 days. GOALS: 1: Pt to maintain clean, dry and intact dressings between wound care visits. (Progressing) 2: Pt to obtain proper compression garments as indicated by PEGGY readings and PT recommendations (Met and pt compliant with use) 3: Wounds to demonstrate 100% granulation tissue with no s/s of infection (Progressing) 4: Wounds to gradually epithelialize from the edges inward and demonstrate 100% closures (Progressing) 5: Pt to receive education regarding management of LE edema and prevent further wounds. (Met) PATIENT'S GOAL: Wound healing Status of Patient's Goals: Progressing; nearly healed. Venous insufficiency ulcers are fully healed; R) anterior lovelace with dehisced laceration that was previously stitched is nearly healed and new trauma abrasions/skin tears at L) anterior lovelace are healing well. Patient Compliance: Good, but is prone to injury at anterior shins related to lifestyle and activities. Pt instructed to look into lovelace protection pads while working to prevent further injury. Prognosis: Good Reasons for continuing therapy: Wounds at B) shins are nearly healed and pt will likely be discharged soon. Re-eval completed as pt has been seen greater than 3 months. Thank you for this referral. If you have any questions, comments, or concerns about this report or plan, please contact me at . H. Lizbeth Dominique, PT, MPT, OMS MTDD
--- NOTE | 2018-09-19 15:59 | PT PLAN OF CARE ---
Physician: Dr. Menon Patient is being seen: Smitha Beard Therapist: Leia Dominique, PT, MPT, OMS Medical Diagnosis: Bilateral LE ulcers Treatment Diagnosis: Bilateral LE venous insufficiency ulcers; dehisced laceration R) anterior lovelace; skin abrasions from trauma at L) anterior lovelace Date of Onset: 05/23/18 Date of Initial Evaluation: 09/12/18 Date patient was last seen: 09/19/18 Number of treatments since 06/13/18: 14 Number of cancellations/No shows: 0 INTERVENTIONS: Skilled PT wound care to include conservative, selective sharps debridement as well as advanced wound care product selection and application 1x/Week for up to 90 days. GOALS: 1: Pt to maintain clean, dry and intact dressings between wound care visits. (Met) 2: Pt to obtain proper compression garments as indicated by PEGGY readings and PT recommendations (Met and pt compliant with use) 3: Wounds to demonstrate 100% granulation tissue with no s/s of infection (Met) 4: Wounds to gradually epithelialize from the edges inward and demonstrate 100% closures (Met) 5: Pt to receive education regarding management of LE edema and prevent further wounds. (Met) PATIENT'S GOAL: Wound healing Status of Patient's Goals: Met Patient Compliance: Good Prognosis: Good Reasons for continuing therapy: None at this time, as all sites are currently healed. Pt is aware of his heightened risk of injury to B) shins due to the nature of his activities and pt verbalizes understanding of preventative strategies to avoid this type of injury in the future, as well as course of action to take in the event that further injury does occur. Thank you for this referral. If you have any questions, comments, or concerns about this report or plan, please contact me at . Leia Dominique, PT, MPT, OMS [facility]
== END 2018-09-12 18:00 | disposition home or self-care (01) ==
LOC: PT 10:30
PROVIDERS: ATTEND Internal Medicine
DX: L97.909 Non-pressure chronic ulcer of unspecified part of unspecified lower leg with unspecified severity (principal); I87.2 Venous insufficiency (chronic) (peripheral); S81.811A Laceration without foreign body, right lower leg, initial encounter; S80.812A Abrasion, left lower leg, initial encounter; E11.42 Type 2 diabetes mellitus with diabetic polyneuropathy

== ENCOUNTER → 2018-10-08 | Outpatient (CLI) | payer OTHER, MEDICARE ==
[2017-08-28 14:10] VITALS: BMI 30.3
[2018-10-08 13:39] LABS: PLATELET COUNT, AUTOMATED 169 K/uL (150-450)
[2018-10-08 13:41] LABS: INR 2.83
--- NOTE | 2018-10-08 14:02 | RADIOLOGY IMAGING REPORT ---
FACILITY: [facility] [place] PATIENT NAME: Mata Beard : 1960 MR: [id number] V: [id number] EXAM DATE: ORDERING PHYSICIAN: GREER CROWLEY TECHNOLOGIST: Location: [facility] Patient: Mata Beard : 1960 Visit/Account:[id number] Date of Sevice: 10/08/2018 Exam type: CHEST PA AND LAT History: cardiomyopathy Comparison: July 22, 2017. Findings: Pleural parenchymal scarring in the right lung and left lung base appears similar to the prior study. There is no evidence of acute pulmonary consolidation, pleural effusions or pulmonary edema. Cardi ac silhouette is normal in size. There is a dual lead cardiac pacemaker present. There are old righ t-sided rib fractures IMPRESSION: 1. Peribronchial scarring over the right lung and left lung base appear stable Report Dictated By: Paola Persaud MD at 10/08/2018 1:55 PM Report E-Signed By: Paola Persaud MD at 10/08/2018 1:58 PM WSN:[id number]
== END ==
LOC: LAB 13:06
PROVIDERS: ATTEND Internal Medicine
DX: N18.9 Chronic kidney disease, unspecified (principal); I48.91 Unspecified atrial fibrillation; E11.9 Type 2 diabetes mellitus without complications; Z86.79 Personal history of other diseases of the circulatory system; I26.99 Other pulmonary embolism without acute cor pulmonale; E78.00 Pure hypercholesterolemia, unspecified; I10 Essential (primary) hypertension
CPT/HCPCS: 36415; 71046; 81001; 82040; 82043; 82247; 82306; 82310; 82374; 82435; 82465; 82565; 82607; 82728; 82746; 82947; 83036; 83540; 83550; 83718; 84075; 84132; 84153; 84155; 84295; 84443; 84450; 84460; 84478; 84520; 85025; 85610

== ENCOUNTER 2018-10-27 09:19 | Emergency (ER) | payer OTHER, MEDICARE ==
[2017-08-28 14:10] VITALS: Wt 92.5 kg
[~2018-10-27 09:19] MED LIST changes: -GABA-503 PO; +GABA-533 PO
--- NOTE | 2018-10-27 09:22 | ER Report ---
History and Physical Time Seen By MD: 09:22 HPI/ROS CHIEF COMPLAINT: Bilateral epistaxis HISTORY OF PRESENT ILLNESS: Patient is a 57-year-old male here with complaints of bilateral epistaxis since 2200 last night. Patient is on warfarin with an INR 2.1 which was checked this morning when the patient went to clinic. Patient was sent over from clinic due to persistent epistaxis. Patient did have a cauterization by ear nose and throat several months ago. He does report bumping his nose at approximately 2200 last night which likely precipitated bleeding. Patient denies lightheadedness, dizziness, weakness, fatigue. REVIEW OF SYSTEMS: Constitutional: No fever, no chills. Eyes: No discharge. ENT: + b/l epistaxis Cardiovascular: No chest pain, no palpitations. Respiratory: No cough, no shortness of breath. Gastrointestinal: No abdominal pain, no vomiting. Genitourinary: No hematuria. Musculoskeletal: No back pain. Skin: No rashes. Neurological: No headache. Allergies: Coded Allergies: adhesive (Verified Allergy, Mild, 08/24/18) Home Meds Active Scripts Duloxetine Hcl (CYMBALTA) 60 Mg Capsule.dr, 60 MG PO QDAY, #30 CAP 1 Refill Prov:GREER CROWLEY MD 10/10/18 Warfarin Sodium (COUMADIN) 5 Mg Tablet, 5 MG PO QDAY, #93 TAB 0 Refills Prov:GREER CROWLEY MD 10/02/18 Bumetanide (BUMETANIDE) 2 Mg Tab, 1 TAB PO BID, #90 TAB 4 Refills Prov:GREER CROWLEY MD 08/13/18 Oxycodone Hcl 10 Mg Tab (OXYCODONE HCL 10 MG TAB) 10 Mg Tablet, 1 TAB PO QID PRN for pain, #120 TAB refill on or after 10/05/2018 Prov:GREER CROWLEY MD 08/05/18 Trazodone Hcl (TRAZODONE HCL) 50 Mg Tablet, 0.5-1 TAB PO QHS PRN for sleep, #30 TAB 3 Refills Prov:GREER CROWLEY MD 08/05/18 Levothyroxine Sodium (LEVOTHYROXINE SODIUM) 75 Mcg Tablet, 1 TAB PO QAM, #90 TAB Prov:GREER CROWLEY MD 08/04/18 Pramipexole Di-Hcl (PRAMIPEXOLE DIHYDROCHLORIDE) 0.5 Mg Tablet, 1 TAB PO TID, #270 TAB 1 Refill Prov:GREER CROWLEY MD 08/04/18 Pregabalin (LYRICA) 150 Mg Capsule, 150 MG PO BID, #60 CAPSULE 5 Refills Prov:GREER CROWLEY MD 05/22/18 Blood Sugar Diagnostic (CONTOUR NEXT) 1 Each Strip, 1 EACH MC QID for 30 Days, #150 STRIP 5 Refills patient to test blood glucose four times daily Prov:GREER CROWLEY MD 04/15/18 Gabapentin (GABAPENTIN) 600 Mg Tablet, 600 MG PO BID PRN for pain, #60 TAB 6 Refills Prov:GREER CROWLEY MD 02/27/18 Metoprolol Succinate (METOPROLOL SUCCINATE) 100 Mg Tab.er.24h, 1 TAB PO QDAY, #90 TAB 4 Refills Prov:GREER CROWLEY MD 01/16/18 Insulin Lispro 100 Un/Ml Vial (HUMALOG 100 U/ML VIAL) 100 Unit/1 Ml Vial, 100 UNIT SQ DIRECTED, #10 VIAL 6 Refills Use up to 100 units/day with pump Prov:GREER CROWLEY MD 12/30/17 Dextrose (GLUCOSE) 4 Gm Tab.chew, 8 GM PO QID, #4 TAB.CHEW 11 Refills Prov:KARIE CAROLINA PHARMD 08/23/17 Reported Medications Lisinopril (LISINOPRIL) 5 Mg Tablet, 5 MG PO QDAY, TAB 03/21/18 Ergocalciferol (Vitamin D2) (VITAMIN D2) 50,000 Unit Capsule, 57928 UNIT PO Q30D, CAPSULE 02/27/18 Hx Smoking: No Smoking Status: Never Smoker Exposure to Second Hand Smoke?: No Hx Substance Use Disorder: No Hx Alcohol Use: No Constitutional Vital Sign - Last 24 Hours 10/27/18 09:23 Temp 98.0 Pulse 89 Resp 14 B/P (MAP) 134/79 Pulse Ox 85 O2 Delivery Room Air Physical Exam General Appearance: The patient is alert, has no immediate need for airway protection and no signs of toxicity. NAD Eyes: Pupils equal and round no pallor or injection. ENT, Mouth: + b/l epistaxis Neurological: No focal deficits Skin: Warm and dry, no rashes. DIFFERENTIAL DIAGNOSIS: After history and physical exam differential diagnosis was considered for anterior versus posterior epistaxis Medical Decision Making ED Course/Re-evaluation ED Course Patient is a 49-year-old male with a history of recurrent epistaxis on Coumadin with an INR 2.1 checked this morning in clinic. Patient reportedly accidentally bumped his nose at approximately 2200 last night which precipitated the bleeding. He does present with bilateral epistaxis, asymptomatic of orthostatic symptoms at this time. Initially tranexamic acid was applied using cotton applicator. Direct pressure was held for 15 minutes and then Milind-Synephrine was applied. Re-evaluation 10/27/2018 10:12:43 am I reevaluated the patient and hemostasis was achieved. Patient was given the remaining Milind-Synephrine and a nasal clamp for home use in case rebleeding occurs. Decision to Disposition Date: Oct 27, 2018 Decision to Disposition Time: 10:12 Depart Departure Latest Vital Signs Vital Signs Date Time Temp Pulse Resp B/P (MAP) Pulse Ox O2 Delivery O2 Flow Rate FiO2 10/27/18 09:23 98.0 89 14 134/79 85 Room Air Impression: Primary Impression: Bleeding nose Condition: Improved Disposition: HOME OR SELF-CARE Referrals: GREER CROWLEY MD (PCP) Patient Instructions: Nosebleed (GEN) Additional Instructions: Please drink plenty of water. Continue your medications as prescribed. You may apply 2 sprays of the Milind-Synephrine to each air followed by clamping the nose for 15 minutes minimum if bleeding recurs. Please return immediately if you develop significant bleeding, are unable to stop the bleeding, become lightheaded, dizzy, weak. Please follow-up with your family doctor in the next week. KHADIJAH MAGALLON DO Oct 27, 2018 09:22
[2018-10-27 09:23] VITALS: BP 134/79
[2018-10-27] MEDS ORDERED: ENT KIT ONE (09:23)
[2018-10-27] MEDS ORDERED: TRANEXAMIC AC 1000 MG/10ML SDV ONE ×2 (09:25)
[2018-10-27] MEDS ORDERED: PHENYLEPHRINE 0.5% 15 ML BTL ONE (10:19)
== END 2018-10-27 10:24 | disposition home or self-care (01) ==
LOC: ER 09:35
DX: R04.0 Epistaxis (principal); Z79.01 Long term (current) use of anticoagulants
CPT/HCPCS: 99282

== ENCOUNTER 2018-10-27 16:00 | Emergency (ER) | payer OTHER, MEDICARE ==
[2017-08-28 14:10] VITALS: Wt 92.5 kg
--- NOTE | 2018-10-27 16:02 | ER Report ---
History and Physical Time Seen By : 16:02 HPI/ROS CHIEF COMPLAINT: Recurrent epistaxis HISTORY OF PRESENT ILLNESS: Patient is a 57-year-old male who was seen here earlier today for epistaxis on Coumadin. Patient was treated with tranexamic acid, Milind-Synephrine and direct pressure which initially stopped the bleeding. Patient went home after being evaluated and reportedly started bleeding in the right nostril which has persisted. Patient denies lightheadedness, dizziness, fatigue, near syncopal episodes. Patient is hemodynamically stable at time of evaluation. REVIEW OF SYSTEMS: Constitutional: No fever, no chills. Eyes: No discharge. ENT: No sore throat. + Bleeding from the right nostril Skin: No rashes. Neurological: No headache. No focal deficit Allergies: Coded Allergies: adhesive (Verified Allergy, Mild, 10/27/18) Home Meds Active Scripts Duloxetine Hcl (CYMBALTA) 60 Mg Capsule.dr, 60 MG PO QDAY, #30 CAP 1 Refill Prov:GREER CROWLEY MD 10/10/18 Warfarin Sodium (COUMADIN) 5 Mg Tablet, 5 MG PO QDAY, #93 TAB 0 Refills Prov:GREER CROWLEY MD 10/02/18 Bumetanide (BUMETANIDE) 2 Mg Tab, 1 TAB PO BID, #90 TAB 4 Refills Prov:GREER CROWLEY MD 08/13/18 Oxycodone Hcl 10 Mg Tab (OXYCODONE HCL 10 MG TAB) 10 Mg Tablet, 1 TAB PO QID PRN for pain, #120 TAB refill on or after 10/05/2018 Prov:GREER CROWLEY MD 08/05/18 Trazodone Hcl (TRAZODONE HCL) 50 Mg Tablet, 0.5-1 TAB PO QHS PRN for sleep, #30 TAB 3 Refills Prov:GREER CROWLEY MD 08/05/18 Levothyroxine Sodium (LEVOTHYROXINE SODIUM) 75 Mcg Tablet, 1 TAB PO QAM, #90 TAB Prov:GREER CROWLEY MD 08/04/18 Pramipexole Di-Hcl (PRAMIPEXOLE DIHYDROCHLORIDE) 0.5 Mg Tablet, 1 TAB PO TID, #270 TAB 1 Refill Prov:GREER CROWLEY MD 08/04/18 Pregabalin (LYRICA) 150 Mg Capsule, 150 MG PO BID, #60 CAPSULE 5 Refills Prov:GREER CROWLEY MD 05/22/18 Blood Sugar Diagnostic (CONTOUR NEXT) 1 Each Strip, 1 EACH MC QID for 30 Days, #150 STRIP 5 Refills patient to test blood glucose four times daily Prov:GREER CROWLEY MD 04/15/18 Gabapentin (GABAPENTIN) 600 Mg Tablet, 600 MG PO BID PRN for pain, #60 TAB 6 Refills Prov:GREER CROWLEY MD 02/27/18 Metoprolol Succinate (METOPROLOL SUCCINATE) 100 Mg Tab.er.24h, 1 TAB PO QDAY, #90 TAB 4 Refills Prov:GREER CROWLEY MD 01/16/18 Insulin Lispro 100 Un/Ml Vial (HUMALOG 100 U/ML VIAL) 100 Unit/1 Ml Vial, 100 UNIT SQ DIRECTED, #10 VIAL 6 Refills Use up to 100 units/day with pump Prov:GREER CROWLEY MD 12/30/17 Dextrose (GLUCOSE) 4 Gm Tab.chew, 8 GM PO QID, #4 TAB.CHEW 11 Refills Prov:KARIE CARLOINA PHARMAdryan 08/23/17 Reported Medications Lisinopril (LISINOPRIL) 5 Mg Tablet, 5 MG PO QDAY, TAB 03/21/18 Ergocalciferol (Vitamin D2) (VITAMIN D2) 50,000 Unit Capsule, 64120 UNIT PO Q30D, CAPSULE 02/27/18 Hx Smoking: No Smoking Status: Never Smoker Exposure to Second Hand Smoke?: No Hx Substance Use Disorder: No Hx Alcohol Use: No Constitutional Vital Sign - Last 24 Hours 10/27/18 10/27/18 10/27/18 10/27/18 16:00 16:13 16:15 16:30 Temp 98.1 Pulse 89 87 90 Resp 16 B/P (MAP) 106/78 (87) 106/78 120/82 (95) Pulse Ox 90 88 88 O2 Delivery Room Air Room Air Room Air Physical Exam General Appearance: The patient is alert, has no immediate need for airway protection and no signs of toxicity. No acute distress Eyes: Pupils equal and round no pallor or injection. ENT, Mouth: Mucous membranes are moist.+ Right anterior epistaxis with active bleeding Neurological: No focal neurological deficits Skin: Warm and dry, no rashes. DIFFERENTIAL DIAGNOSIS: After history and physical exam differential diagnosis was considered for anterior versus posterior epistaxis Medical Decision Making ED Course/Re-evaluation ED Course Patient is a 57-year-old male here with complaints of recurrent epistaxis after being treated earlier today for bilateral epistaxis. Patient is on Coumadin with an INR of 2.1 which was checked this morning. Patient was initially treated with tranexamic acid and Milind-Synephrine and direct pressure however he started bleeding again from the right naris shortly after arriving home. Epinephrine solution was sprayed into the right nostril using an atomizer. Rhino Rocket was applied and epinephrine was sprayed into the gauze as it expanded. Patient tolerated procedure well. Hemostasis was achieved. Recommend close follow-up with ear nose and throat within 48 hours for removal and reevaluation. Return precautions provided. Since patient was bleeding from the left nostril as well this morning, patient was sent home with Milind-Synephrine and an extra Rhino Rocket, patient was instructed how to place the Rhino Rocket. Patient was stable at time of discharge. Decision to Disposition Date: Oct 27, 2018 Decision to Disposition Time: 16:55 Depart Departure Latest Vital Signs Vital Signs Date Time Temp Pulse Resp B/P (MAP) Pulse Ox O2 Delivery O2 Flow Rate FiO2 10/27/18 16:30 90 120/82 (95) 88 Room Air 10/27/18 16:15 98.1 16 Impression: Primary Impression: Bleeding nose Condition: Improved Disposition: HOME OR SELF-CARE Referrals: GREER CROWLEY MD (PCP) Patient Instructions: Nosebleed (GEN) Additional Instructions: Please follow-up with ear nose and throat or return to the emergency department within 48-72 hours for removal of the Rhino Rocket. Please return immediately if you develop fevers, facial swelling, difficulty breathing, recurrent bleeding. You may reapply the Milind-Synephrine if you develop recurrent bleeding in the left nostril. KHADIJAH MAGALLON DO Oct 27, 2018 16:02
[2018-10-27] MEDS ORDERED: ENT KIT ONE (16:11)
[2018-10-27 16:30] VITALS: BP 120/82
[2018-10-28] MEDS ORDERED: PHENYLEPHRINE 0.5% 15 ML BTL ONE (13:20)
[2018-10-28] MEDS ORDERED: EPINEPHrine 0.1% NA SOL 30 ML ONE (13:20)
== END 2018-10-27 17:05 | disposition home or self-care (01) ==
LOC: ER 16:07
DX: R04.0 Epistaxis (principal); Z79.01 Long term (current) use of anticoagulants
CPT/HCPCS: 99282

== ENCOUNTER 2018-11-15 08:12 | Emergency (ER) | payer OTHER, MEDICARE ==
[2017-08-28 14:10] VITALS: Wt 88.5 kg
--- NOTE | 2018-11-15 08:24 | ER Report ---
History and Physical Time Seen By MD: 08:24 HPI/ROS CHIEF COMPLAINT: Left upper extremity swelling or erythema HISTORY OF PRESENT ILLNESS: Patient is a 57-year-old male here with complaints of acute onset of left upper extremity hand erythema, edema, tenderness on exam. Patient did take ibuprofen with some relief of symptoms. Patient is afebrile, hemodynamically stable at time of evaluation. REVIEW OF SYSTEMS: Constitutional: No fever, no chills. Eyes: No discharge. ENT: No sore throat. Cardiovascular: No chest pain, no palpitations. Respiratory: No cough, no shortness of breath. Gastrointestinal: No abdominal pain, no vomiting. Genitourinary: No hematuria. Musculoskeletal: Left upper extremity distal swelling and erythema Skin: No rashes. Neurological: Neurovascular exam intact Allergies: Coded Allergies: adhesive (Verified Allergy, Mild, 10/27/18) Home Meds Active Scripts Oxygen (OXYGEN) Inha, 2 L INH DAILY, #2 L Prov:LEBRON HUSAIN APRN KAIAKO KURA TUARUA-C 11/17/18 Doxycycline Hyclate (DOXYCYCLINE HYCLATE) 100 Mg Tablet, 100 MG PO BID for 7 Days, #14 TAB Prov:KHADIJAH MAGALLON DO 11/15/18 Gabapentin (GABAPENTIN) 600 Mg Tablet, 600 MG PO BID PRN for pain, #60 TAB 6 Refills Prov:GREER CROWLEY MD 11/03/18 Duloxetine Hcl (CYMBALTA) 60 Mg Capsule.dr, 60 MG PO QDAY, #30 CAP 1 Refill Prov:GREER CROWLEY MD 10/10/18 Warfarin Sodium (COUMADIN) 5 Mg Tablet, 5 MG PO QDAY, #93 TAB 0 Refills Prov:GREER CROWLEY MD 10/02/18 Bumetanide (BUMETANIDE) 2 Mg Tab, 1 TAB PO BID, #90 TAB 4 Refills Prov:GREER CROWLEY MD 08/13/18 Oxycodone Hcl 10 Mg Tab (OXYCODONE HCL 10 MG TAB) 10 Mg Tablet, 1 TAB PO QID PRN for pain, #120 TAB refill on or after 10/05/2018 Prov:GREER CROWLEY MD 08/05/18 Levothyroxine Sodium (LEVOTHYROXINE SODIUM) 75 Mcg Tablet, 1 TAB PO QAM, #90 TAB Prov:GREER CROWLEY MD 08/04/18 Pramipexole Di-Hcl (PRAMIPEXOLE DIHYDROCHLORIDE) 0.5 Mg Tablet, 1 TAB PO TID, #270 TAB 1 Refill Prov:GREER CROWLEY MD 08/04/18 Pregabalin (LYRICA) 150 Mg Capsule, 150 MG PO BID, #60 CAPSULE 5 Refills Prov:GREER CROWLEY MD 05/22/18 Blood Sugar Diagnostic (CONTOUR NEXT) 1 Each Strip, 1 EACH MC QID for 30 Days, #150 STRIP 5 Refills patient to test blood glucose four times daily Prov:GREER CROWLEY MD 04/15/18 Metoprolol Succinate (METOPROLOL SUCCINATE) 100 Mg Tab.er.24h, 1 TAB PO QDAY, #90 TAB 4 Refills Prov:GREER CROWLEY MD 01/16/18 Insulin Lispro 100 Un/Ml Vial (HUMALOG 100 U/ML VIAL) 100 Unit/1 Ml Vial, 100 UNIT SQ DIRECTED, #10 VIAL 6 Refills Use up to 100 units/day with pump Prov:GREER CROWLEY MD 12/30/17 Dextrose (GLUCOSE) 4 Gm Tab.chew, 8 GM PO QID, #4 TAB.CHEW 11 Refills Prov:KARIE CAROLINA PHARMAdryan 08/23/17 Reported Medications Lisinopril (LISINOPRIL) 5 Mg Tablet, 5 MG PO QDAY, TAB 03/21/18 Ergocalciferol (Vitamin D2) (VITAMIN D2) 50,000 Unit Capsule, 65610 UNIT PO Q30D, CAPSULE 02/27/18 Discontinued Scripts Trazodone Hcl (TRAZODONE HCL) 50 Mg Tablet, 0.5-1 TAB PO QHS PRN for sleep, #30 TAB 3 Refills Prov:GREER CROWLEY MD 08/05/18 Hx Smoking: No Smoking Status: Never Smoker Exposure to Second Hand Smoke?: No Hx Substance Use Disorder: No Hx Alcohol Use: No Constitutional Vital Sign - Last 24 Hours 11/15/18 11/15/18 11/15/18 11/15/18 08:20 08:21 08:35 08:42 Temp 98.5 Pulse 88 60 Resp 18 B/P (MAP) 128/83 (98) 128/83 Pulse Ox 83 90 O2 Delivery Room Air O2 Flow Rate 2.0 11/15/18 11/15/18 11/15/18 09:12 09:24 09:57 Pulse 61 60 85 Resp 16 B/P (MAP) 115/72 (86) Pulse Ox 95 92 O2 Delivery Room Air Physical Exam General Appearance: The patient is alert, has no immediate need for airway protection and no signs of toxicity. No acute distress Eyes: Pupils equal and round no pallor or injection. ENT, Mouth: Mucous membranes are moist. Neurological: No focal neurological deficits Skin: Erythema and edema of the left dorsal hand Musculoskeletal: Neck is supple non tender. Left upper extremity dorsal hand erythema and swelling, tenderness on palpation. DIFFERENTIAL DIAGNOSIS: After history and physical exam differential diagnosis was considered for cellulitis, abscess, trauma, gallop Medical Decision Making Data Points Result Diagram: 11/15/18904 Laboratory Hematology Test 11/15/18 09:05 Red Blood Count 4.39 M/uL (4.00-5.60) Mean Corpuscular Volume 95.3 fL (80.0-96.0) Mean Corpuscular Hemoglobin 31.5 pg (26.0-33.0) Mean Corpuscular Hemoglobin Concent 33.1 g/dL (32.0-36.0) Red Cell Distribution Width 16.1 % (11.5-14.5) Mean Platelet Volume 9.7 fL (7.2-11.1) Neutrophils (%) (Auto) 68.5 % (39.4-72.5) Lymphocytes (%) (Auto) 18.2 % (17.6-49.6) Monocytes (%) (Auto) 8.8 % (4.1-12.4) Eosinophils (%) (Auto) 4.2 % (0.4-6.7) Basophils (%) (Auto) 0.3 % (0.3-1.4) Nucleated RBC Relative Count (auto) 0.0 /100WBC Neutrophils # (Auto) 3.8 K/uL (2.0-7.4) Lymphocytes # (Auto) 1.0 K/uL (1.3-3.6) Monocytes # (Auto) 0.5 K/uL (0.3-1.0) Eosinophils # (Auto) 0.2 K/uL (0.0-0.5) Basophils # (Auto) 0.0 K/uL (0.0-0.1) Nucleated RBC Absolute Count (auto) 0.00 K/uL Erythrocyte Sedimentation Rate 32 mm/HOUR (0-20) Chemistry Test 11/15/18 09:05 White Blood Count 5.5 k/uL (4.5-11.0) Red Blood Count 4.39 M/uL (4.00-5.60) Hemoglobin 13.9 g/dL (14.0-18.0) Hematocrit 41.9 % (42.0-52.0) Mean Corpuscular Volume 95.3 fL (80.0-96.0) Mean Corpuscular Hemoglobin 31.5 pg (26.0-33.0) Mean Corpuscular Hemoglobin Concent 33.1 g/dL (32.0-36.0) Red Cell Distribution Width 16.1 % (11.5-14.5) Platelet Count 144 K/uL (150-450) Mean Platelet Volume 9.7 fL (7.2-11.1) Neutrophils (%) (Auto) 68.5 % (39.4-72.5) Lymphocytes (%) (Auto) 18.2 % (17.6-49.6) Monocytes (%) (Auto) 8.8 % (4.1-12.4) Eosinophils (%) (Auto) 4.2 % (0.4-6.7) Basophils (%) (Auto) 0.3 % (0.3-1.4) Nucleated RBC Relative Count (auto) 0.0 /100WBC Neutrophils # (Auto) 3.8 K/uL (2.0-7.4) Lymphocytes # (Auto) 1.0 K/uL (1.3-3.6) Monocytes # (Auto) 0.5 K/uL (0.3-1.0) Eosinophils # (Auto) 0.2 K/uL (0.0-0.5) Basophils # (Auto) 0.0 K/uL (0.0-0.1) Nucleated RBC Absolute Count (auto) 0.00 K/uL Erythrocyte Sedimentation Rate 32 mm/HOUR (0-20) EKG/Imaging Imaging Location: [facility] Patient: Mata Beard : 1960 Visit/Account:[id number] Date of Sevice: 11/15/2018 HAND COMPLETE LEFT Indication: Erythema and swelling dorsal aspect Comparison: Left hand radiograph 07/06/2009 Findings: There is generalized osteopenia, new from the prior study. The DIP and PIP joints are smooth. There is moderate narrowing with sclerosis at the first MCP joint, and the third MCP joint. There is narrowing at the intercarpal joint spaces between the scaphoid and lunate, and the scaphoid and capitate. The distal radius and ulna are normal. Atherosclerotic changes are seen in the soft tissues. Soft tissues demonstrate swelling over the dorsal portion of the hand. IMPRESSION: 1. Abnormal soft tissue swelling of the dorsal aspect of the hand. 2. 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 3. Generalized osteopenia. ED Course/Re-evaluation ED Course Patient is a 57-year-old male here with acute onset of left dorsal hand swelling and erythema. X-ray showed no acute findings. CBC, CMP, ESR were unremarkable. ESR was mildly elevated, indeterminate. Patient was given IV clindamycin dose and sent home on doxycycline. Patient was advised to avoid NSAIDs due to kidney dysfunction and to take Tylenol in the interim. Close PCP follow-up recommended. Return precautions provided Decision to Disposition Date: Nov 15, 2018 Decision to Disposition Time: 09:40 Depart Departure Latest Vital Signs Vital Signs Date Time Temp Pulse Resp B/P (MAP) Pulse Ox O2 Delivery O2 Flow Rate FiO2 11/15/18 09:57 85 16 115/72 (86) 92 Room Air 11/15/18 08:35 2.0 11/15/18 08:21 98.5 Impression: Primary Impression: Swelling of left hand Condition: Improved Disposition: HOME OR SELF-CARE Referrals: LEBRON HUSAIN APRN KAIAKO KURA TUARUA-C (PCP) New Scripts Doxycycline Hyclate (DOXYCYCLINE HYCLATE) 100 Mg Tablet 100 MG PO BID for 7 Days, #14 TAB Prov: KHADIJAH MAGALLON DO 11/15/18 Patient Instructions: Cellulitis (ED) Additional Instructions: Please drink plenty of water. You may take acetaminophen not to exceed 3 g daily for pain control. Please take doxycycline 1 tablet twice daily for 7 days. Please return immediately if you develop worsening pain, increased swelling, worsening rash, fevers or chills. Please follow-up with your family doctor as scheduled Saturday. KHADIJAH MAGALLON DO Nov 15, 2018 08:24
[2018-11-15] MEDS ORDERED: CLINDAMYCIN(*) 600 MG/NS 50 ML 50 ML IVPB ONE (09:00)
--- NOTE | 2018-11-15 09:02 | RADIOLOGY IMAGING REPORT ---
FAC[place] [facility] [place]IENT NAME: Mata Beard : 1960 MR: [id number] V: [id number] EXAM DATE: ORDERING PHYSICIAN: KHADIJAH MAGALLON TECHNOLOGIST: Location: [facility] Patient: Mata Beard : 1960 Visit/Account:[id number] Date of Sevice: 11/15/2018 HAND COMPLETE LEFT Indication: Erythema and swelling dorsal aspect Comparison: Left hand radiograph 07/06/2009 Findings: There is generalized osteopenia, new from the prior study. The DIP and PIP joints are cherie h. There is moderate narrowing with sclerosis at the first MCP joint, and the third MCP joint. There is narrowing at the intercarpal joint spaces between the scaphoid and lunate, and the scaphoid and capitate. The distal radius and ulna are normal. Atherosclerotic changes are seen in the soft tis sues. Soft tissues demonstrate swelling over the dorsal portion of the hand. IMPRESSION: 1. Abnormal soft tissue swelling of the dorsal aspect of the hand. 2. 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 3. Generalized osteopenia. Report Dictated By: Toro Davenport at 11/15/2018 8:54 AM Report E-Signed By: Toro Davenport at 11/15/2018 8:58 AM WSN:[id number]
[2018-11-15 09:15] LABS: PLATELET COUNT, AUTOMATED 144 K/uL (150-450)
[2018-11-15] MEDS ORDERED: DOXY-179 PO (09:42)
[2018-11-15 09:57] VITALS: BP 115/72
[2018-11-17] MEDS ORDERED: OXYGENHOME INH (11:57)
== END 2018-11-15 09:58 | disposition home or self-care (01) ==
LOC: ER 08:31
DX: M79.89 Other specified soft tissue disorders (principal); L53.9 Erythematous condition, unspecified
CPT/HCPCS: 73130; 85025; 85651; 96365; 99283; J3490

== ENCOUNTER → 2018-11-18 | Outpatient (CLI) | payer OTHER, MEDICARE ==
[2017-08-28 14:10] VITALS: BMI 30.3
[~2018-11-18] MED LIST changes: +DOXY-179 PO; +OXYGENHOME INH
--- NOTE | 2018-11-18 17:07 | RADIOLOGY IMAGING REPORT ---
FACILITY: [facility] PATIENT NAME: Mata Beard : 1960 MR: [id number] V: [id number] EXAM DATE: ORDERING PHYSICIAN: LEBRON HUSAIN TECHNOLOGIST: Location: [facility] - [place] Patient: Mata Beard : 1960 Visit/Account:[id number] Date of Sevice: 11/18/2018 XR FOOT 2 VWS HISTORY: bilateral foot pain Additional history: None COMPARISON: None. FINDINGS: Two views bilateral feet Right foot: There is remote surgical ankylosis of the tibiotalar joint with malleable plate and cance llous bone screws. This is incompletely evaluated on the foot radiographs. There is moderate joint space narrowing with osteophytosis at the first MTP joint. Remaining joints are unremarkable. Diffu se point demineralization is noted and there is advanced calcific atherosclerosis. Left foot: Minimal joint space narrowing at the first MTP joint. There is a 4 x 7 mm erosion seen in the medial aspect of the first metatarsal head. Remaining joints are unremarkable. Diffuse bony de mineralization is advanced vascular plaques similar to the contralateral side noted. IMPRESSION: Bilateral osteopenia and advanced vasculopathy (probably related to diabetes) Remote right ankle arthrodesis. Mild bilateral first MTP arthropathy right more advanced than left. There is a periarticular erosion in the left first metatarsal head. Differential would include infl ammatory arthropathy, gout, or, focus of osteomyelitis, particularly given patient's a vasculopath. Consequently, consider contrasted MRI left foot for further evaluation of this focal erosion first me tatarsal head. Report Dictated By: Damián Castro MD at 11/18/2018 4:53 PM Report E-Signed By: Damián Castro MD at 11/18/2018 5:02 PM WSN:[id number]
== END ==
LOC: RAD 15:59
PROVIDERS: ATTEND Nurse Practitioner Family
DX: M85.88 Other specified disorders of bone density and structure, other site (principal); Z98.1 Arthrodesis status

== ENCOUNTER → 2018-11-24 | Outpatient (CLI) | payer OTHER, MEDICARE ==
[2017-08-28 14:10] VITALS: BMI 30.3
== END ==
LOC: LAB 13:38
PROVIDERS: ATTEND Nurse Practitioner Family
DX: M19.071 Primary osteoarthritis, right ankle and foot (principal); M19.072 Primary osteoarthritis, left ankle and foot; M79.671 Pain in right foot; M79.672 Pain in left foot
CPT/HCPCS: 36415; 84550; 85651; 86038; 86140; 86200; 86430

== ENCOUNTER → 2018-12-08 | Outpatient (CLI) | payer OTHER, MEDICARE ==
[2017-08-28 14:10] VITALS: BMI 30.3
[2018-12-08 15:53] LABS: PLATELET COUNT, AUTOMATED 147 K/uL (150-450)
== END ==
LOC: LAB 15:27
PROVIDERS: ATTEND Nurse Practitioner Family
DX: M25.442 Effusion, left hand (principal)
CPT/HCPCS: 36415; 85025; 86140

== ENCOUNTER → 2019-01-12 | Outpatient (CLI) | payer OTHER, MEDICARE ==
[2017-08-28 14:10] VITALS: BMI 30.3
[~2019-01-12] MED LIST changes: +ALLO100T70 PO
[2019-01-12 10:28] LABS: PLATELET COUNT, AUTOMATED 164 K/uL (150-450)
== END ==
LOC: LAB 09:38
PROVIDERS: ATTEND Nurse Practitioner Family
DX: M10.9 Gout, unspecified (principal); R19.7 Diarrhea, unspecified; E03.9 Hypothyroidism, unspecified; N18.9 Chronic kidney disease, unspecified; I48.91 Unspecified atrial fibrillation; E11.22 Type 2 diabetes mellitus with diabetic chronic kidney disease; I12.9 Hypertensive chronic kidney disease with stage 1 through stage 4 chronic kidney disease, or unspecified chronic kidney disease
CPT/HCPCS: 36415; 82040; 82247; 82310; 82374; 82435; 82565; 82947; 83036; 84075; 84132; 84153; 84155; 84295; 84443; 84450; 84460; 84520; 84550; 85025